=== PATIENT | female | born 1945 | race Caucasian/White ===

== ENCOUNTER 2019-08-09 19:46 | Emergency (ER) | payer OTHER ==
--- NOTE | 2019-08-09 19:51 | ERPHSYRPT ---
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 pt is on plavix and asa. Timing/Duration: today Severity: mild Associated Symptoms: denies symptoms Allergies/Adverse Reactions: No Known Drug Allergies Allergy (Verified 08/09/19 20:11) Home Medications: Aspirin EC 81 mg [Ecotrin 81 mg] 81 mg PO DAILY 02/03/13 [History] Clopidogrel Bisulfate 75 mg [PLAVIX 75 MG Tablet] 75 mg PO DAILY 02/03/13 [History] Metoprolol Succinate 50 mg [Toprol Xl 50 MG] 50 mg PO DAILY 02/03/13 [ History] Rosuvastatin Calcium [Crestor] 10 mg PO DAILY 02/03/13 [History] Hydroxyzine HCl 25 mg [Atarax 25 mg] 25 mg PO Q4H PRN PRN 08/09/19 [ History] Hx Tetanus, Diphtheria Vaccination/Date Given: Yes (unknown) Hx Influenza Vaccination/Date Given: No Hx Pneumococcal Vaccination/Date Given: No - Review of Systems Constitutional: No Symptoms Eyes: No Symptoms Ears, Nose, & Throat: No Symptoms Respiratory: No Symptoms Cardiac: No Symptoms Abdominal/Gastrointestinal: No Symptoms Genitourinary Symptoms: No Symptoms Musculoskeletal: No Symptoms Skin: Other (subq wooden splinter) Neurological: No Symptoms Psychological: No Symptoms Endocrine: No Symptoms Hematologic/Lymphatic: No Symptoms Immunological/Allergic: No Symptoms All Other Systems: Reviewed and Negative - Past Medical History Pertinent Past Medical History: Yes Neurological History: No Pertinent History ENT History: No Pertinent History Cardiac History: Coronary Artery Disease, High Cholesterol, Hypertension Respiratory History: No Pertinent History Endocrine Medical History: No Pertinent History Musculoskeletal History: No Pertinent History GI Medical History: No Pertinent History History: No Pertinent History Psycho-Social History: No Pertinent History Female Reproductive Disorders: No Pertinent History - Past Surgical History Past Surgical History: Yes Neuro Surgical History: No Pertinent History Cardiac: Cardiac Catheterization, Cardiac Stent Respiratory: No Pertinent History Gastrointestinal: No Pertinent History Genitourinary: No Pertinent History Musculoskeletal: Other - Social History Smoking Status: Never smoker Exposure to second hand smoke: No Drug Use: none Patient Lives Alone: No - Nursing Vital Signs Nursing Vital Signs: Initial Vital Signs Temperature 97.6 F 08/09/19 19:53 Pulse Rate 59 L 08/09/19 19:53 Respiratory Rate 18 08/09/19 19:53 Blood Pressure 179/83 08/09/19 19:53 O2 Sat by Pulse Oximetry 96 08/09/19 19:53 Pain Scale Pain Intensity 0 - Physical Exam General Appearance: no apparent distress, alert Eye Exam: PERRL/EOMI, eyes nml inspection Ears, Nose, Throat Exam: normal ENT inspection, moist mucous membranes Neck Exam: normal inspection, non-tender, supple, full range of motion Respiratory Exam: airway intact, No chest tenderness, No respiratory distress Gastrointestinal/Abdomen Exam: No tenderness Pelvic Exam: not done Rectal Exam: not done Back Exam: normal range of motion, No CVA tenderness, No vertebral tenderness Extremity Exam: other (volar aspect right wrist 2mm opening with palpable subq fb. tender. 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 right wrist prepped with betadine. 1% lidocaine 1.5ml for local anesthesia. #11 blade used to extend 2mm opening to 4mm. single 2cm wooden splinter removed with hemostat. no complications. pt irma well. pressure dressing applied. - Course Nursing assessment & vital signs reviewed: Yes Ordered Tests: Medication Summary Discontinued Medications Generic Name Dose Route Start Last Admin Trade Name Dara PRN Reason Stop Dose Admin Cephalexin HCl 500 mg 08/09/19 20:11 Keflex 500 Mg PO 08/09/19 20:12 STAT ONE - Progress Progress: improved Counseled pt/family regarding: diagnosis - Departure Departure Disposition: Home Clinical Impression: Foreign body (FB) in soft tissue Condition: Stable Critical Care Time: No Additional Instructions: keep current dressing in place until tomorrow evening. tomorrow evening remove dressing and wash daily with soap and water. no ointment lotions or creams. follow up with primary doctor or ED if symptoms worsen Prescriptions: Cephalexin Mh 500 mg [Keflex 500 mg] 500 mg PO TID #15 capsule
[2019-08-09 20:11] VITALS: BP 179/83; PULSE 59; O2SAT 96
[2019-08-09] MEDS ORDERED: KEFLEX 500 MG PO ONE (20:11)
[2019-08-09] MEDS ORDERED: KEFLEX 500 MG ONE (20:15)
== END 2019-08-09 20:34 | disposition home or self-care (01) ==
LOC: ED 19:46
DX: S60.851A Superficial foreign body of right wrist, initial encounter (principal); W45.8XXA Other foreign body or object entering through skin, initial encounter; Y93.9 Activity, unspecified; Y92.9 Unspecified place or not applicable
CPT/HCPCS: 20520; 99283; A9270-GY

== ENCOUNTER 2019-08-21 04:58 | Emergency (ER) | payer OTHER ==
--- NOTE | 2019-08-21 05:19 | ERPHSYRPT ---
- History of Present Illness Time Seen by Provider: 08/21/19 05:10 Source: patient, family Exam Limitations: no limitations Physician History: 74 y/o white female on as and with h/o htn, cadz and elevated cholesterol, presents with left flank pain sudden onset, localized and nonradiating. denies urinary sx. has some nausea. no vomiting. denies cp, denies soa, denies abd pain. no vaginal discharge. no acute or recent trauma. denies xs activity. Timing/Duration: today Method of Injury: unknown Quality: sharp, stabbing Back Pain Location: lumbar spine Severity of Pain-Max: moderate Severity of Pain-Current: moderate Modifying Factors: Improves With: movement Associated Symptoms: nausea, lower back pain, muscle spasms, No fever, No chills , No urinary incontinence, No vomiting, No dizziness, No numbness in legs/feet, No weakness Previous symptoms: no prior history Allergies/Adverse Reactions: No Known Drug Allergies Allergy (Verified 08/21/19 05:16) Home Medications: Aspirin EC 81 mg [Ecotrin 81 mg] 81 mg PO DAILY 02/03/13 [History] Metoprolol Succinate 50 mg [Toprol Xl 50 MG] 50 mg PO DAILY 02/03/13 [ History] Rosuvastatin Calcium [Crestor] 10 mg PO DAILY 02/03/13 [History] Hydroxyzine HCl 25 mg [Atarax 25 mg] 25 mg PO Q4H PRN PRN 08/09/19 [ History] Hx Tetanus, Diphtheria Vaccination/Date Given: Yes (unknown) Hx Influenza Vaccination/Date Given: No Hx Pneumococcal Vaccination/Date Given: No - Review of Systems Constitutional: No Symptoms Eyes: No Symptoms Ears, Nose, & Throat: No Symptoms Respiratory: No Symptoms Cardiac: No Symptoms Abdominal/Gastrointestinal: No Symptoms Genitourinary Symptoms: Flank Pain (left) Musculoskeletal: Back Pain (left lower lumbar) Skin: No Symptoms Neurological: No Symptoms Psychological: No Symptoms Endocrine: No Symptoms Hematologic/Lymphatic: No Symptoms Immunological/Allergic: No Symptoms All Other Systems: Reviewed and Negative - Past Medical History Pertinent Past Medical History: Yes Neurological History: No Pertinent History ENT History: No Pertinent History Cardiac History: Coronary Artery Disease, High Cholesterol, Hypertension Respiratory History: No Pertinent History Endocrine Medical History: No Pertinent History Musculoskeletal History: No Pertinent History GI Medical History: No Pertinent History History: No Pertinent History Psycho-Social History: No Pertinent History Female Reproductive Disorders: No Pertinent History - Past Surgical History Past Surgical History: Yes Neuro Surgical History: No Pertinent History Cardiac: Cardiac Catheterization, Cardiac Stent Respiratory: No Pertinent History Gastrointestinal: No Pertinent History Genitourinary: No Pertinent History Musculoskeletal: Other - Social History Smoking Status: Never smoker Exposure to second hand smoke: No Drug Use: none Patient Lives Alone: No - Nursing Vital Signs Nursing Vital Signs: Initial Vital Signs Temperature 97.8 F 08/21/19 05:03 Pulse Rate 65 08/21/19 05:03 Respiratory Rate 22 08/21/19 05:03 Blood Pressure 121/62 08/21/19 05:03 O2 Sat by Pulse Oximetry 98 08/21/19 05:03 Pain Scale Pain Intensity 8 - Physical Exam General Appearance: mild distress, alert, anxiety Eye Exam: PERRL/EOMI, eyes nml inspection Ears, Nose, Throat Exam: normal ENT inspection, moist mucous membranes Neck Exam: normal inspection, non-tender, supple, full range of motion Respiratory Exam: normal breath sounds, lungs clear, airway intact, No chest tenderness, No respiratory distress Cardiovascular Exam: regular rate/rhythm, normal heart sounds, normal peripheral pulses Gastrointestinal Exam: soft, normal bowel sounds, No tenderness Pelvic Exam: not done Rectal Exam: not done Back Exam: CVA tenderness (left), muscle spasm, No vertebral tenderness Extremity Exam: normal inspection, normal range of motion, No pelvis stable Neurologic Exam: alert, oriented x 3, cooperative, 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 Skin Exam: normal color, warm, dry Lymphatic Exam: No adenopathy SpO2 Interpretation: normal O2 Delivery: Room Air Ordered Tests: Active Orders 24 hr Category Date Time Status CULTURE,URINE Stat Lab 08/21/19 05:29 Received UA W/RFX UR CULTURE Stat Lab 08/21/19 05:29 Completed Lab/Rad Data: Laboratory Results 08/21/19 Range/Units 05:29 Urine Color YELLOW (YELLOW) Urine Appearance CLEAR (CLEAR) Urine pH 6.0 (5-6) Ur Specific [place] 1.015 (1.005-1.025) Urine Protein NEGATIVE (Negative) Urine Ketones NEGATIVE (NEGATIVE) Urine Blood SMALL (0-5) Adrian/ul Urine Nitrite NEGATIVE (NEGATIVE) Urine Bilirubin NEGATIVE (NEGATIVE) Urine Urobilinogen NEGATIVE (0-1) mg/dL Ur Leukocyte Esterase SMALL (NEGATIVE) Urine WBC (Auto) 11-15 (0-5) /HPF Urine RBC (Auto) 11-15 (0-2) /HPF U Hyaline Cast (Auto) 0-2 (0-2) /LPF U Epithel Cells (Auto) RARE (FEW) /HPF Urine Bacteria (Auto) NONE (NEGATIVE) /HPF Urine Mucus (Auto) SLIGHT (NEGATIVE) /HPF Urine Culture Reflexed YES (NO) Urine Glucose NEGATIVE (NEGATIVE) mg/dL - Progress Progress: improved Progress Note: 08/21/19 05:58 pt does not want a ct scan at this time. she only wants nausea medicine, antibx , pain meds. Counseled pt/family regarding: lab results, diagnosis, need for follow-up - Departure Departure Disposition: Home Clinical Impression: Flank pain, Back pain, UTI (urinary tract infection) Condition: Stable Critical Care Time: No Referrals: ROULA ESTRADA MD [Primary Care Provider] - Additional Instructions: drink plenty of fluids. take ibuprofen 600mg orally 3 times daily with food. return to ED if symptoms worsen. Prescriptions: Ondansetron ODT 4 MG [Zofran Odt 4 mg] 4 mg PO Q6H PRN PRN #10 tab.rapdis PRN Reason: Vomiting Hydrocodone/APAP 5/325 [[place] 5/325 mg] 1 each PO Q8H PRN PRN #9 tablet MDD 3 PRN Reason: Pain Ciprofloxacin [Cipro 500 MG] 500 mg PO BID #14 tablet
[2019-08-21 05:37] LABS: Appearance CLEAR (CLEAR); Bilirubin NEGATIVE (NEGATIVE); Blood SMALL Ery/ul (0-5); Epithelial Cells RARE /HPF (FEW); Glucose NEGATIVE (NEGATIVE); Hyaline Casts 0-2 /LPF (0-2); Ketones NEGATIVE (NEGATIVE); Leukocyte Esterase SMALL (NEGATIVE); Mucus SLIGHT /HPF (NEGATIVE); Nitrite NEGATIVE (NEGATIVE); Protein,Urine Dip NEGATIVE (Negative); Specific Gravity 1.015 (1.005-1.025); Urobilinogen NEGATIVE mg/dL (0-1)
[2019-08-21] MEDS ORDERED: ZOFRAN ODT 4 MG PO ONE (06:03)
[2019-08-21] MEDS ORDERED: Levofloxacin 250MG Tablet PO ONE (06:04)
[2019-08-21] MEDS ORDERED: TORAdol 30 mg Injection IM ONE (06:05)
[2019-08-21] MEDS ORDERED: Hydromorphone 1 mg/ml Ampule IM ONE (06:05)
[2019-08-21] MEDS ORDERED: NORCO 5/325 MG PO ONE (06:06)
[2019-08-21] MEDS ORDERED: ZOFRAN ODT 4 MG PO PRN (06:07)
[2019-08-21] MEDS ORDERED: TORAdol 30 mg Injection ONE (06:08)
[2019-08-21] MEDS ORDERED: Hydromorphone 1 mg/ml Ampule ONE (06:08)
[2019-08-21] MEDS ORDERED: Levofloxacin 250MG Tablet ONE (06:08)
[2019-08-21] MEDS ORDERED: ZOFRAN ODT 4 MG ONE ×2 (06:08→06:11)
[2019-08-21] MEDS ORDERED: NORCO 5/325 MG ONE (06:11)
[2019-08-21 06:38] VITALS: BP 113/77; PULSE 77; O2SAT 99
== END 2019-08-21 06:38 | disposition home or self-care (01) ==
LOC: ED 04:58
DX: R10.9 Unspecified abdominal pain (principal); M54.5 Low back pain; N39.0 Urinary tract infection, site not specified; I25.10 Atherosclerotic heart disease of native coronary artery without angina pectoris; E78.00 Pure hypercholesterolemia, unspecified; I10 Essential (primary) hypertension; F41.9 Anxiety disorder, unspecified
CPT/HCPCS: 81001; 87077; 87086; 87186; 96372; 99284; J1170; J1885; Q0162; A9270-GY

== ENCOUNTER 2020-09-04 16:04 | Observation (INO) | payer OTHER ==
[2020-09-04] MEDS ORDERED: Sodium Chloride 0.9% 1000 ML 1,000 ML IV STA (17:54)
[2020-09-04] MEDS ORDERED: Zofran 4 MG/2 ML VIAL IV ONE ×2 (17:54→19:45)
[2020-09-04] MEDS ORDERED: Sodium Chloride 0.9% 1000 ML 1,000 ML ONE (18:23)
[2020-09-04] MEDS ORDERED: Zofran 4 MG/2 ML VIAL ONE ×2 (18:23→19:49)
[2020-09-04 18:31] LABS: Hematocrit 47.6 % (35-47); Hemoglobin 15.6 gm/dl (12.0-16.0); Mean Cell Volume 86.9 fl (78-100); Mean Corpuscular Hemoglobin 28.5 pg (26-32); Mean Corpuscular Hgb Concent. 32.8 g/dl (32-36); Mean Platelet Volume 9.7 fl (7.5-11.0); Platelet Count 301 K/mm3 (150-450); Red Blood Count 5.48 M/mm3 (4.1-5.4); Red Cell Distribution Width 13.9 % (11.5-14.0); White Blood Count 9.2 K/mm3 (4.0-10.5)
[2020-09-04 19:02] LABS: ANION GAP 15.9 MEQ/L (5-15); BILIRUBIN,TOTAL 0.8 mg/dL (0.2-1.3); Calcium 9.6 mg/dL (8.4-10.2); Creatinine 1 1.49 mg/dL (0.52-1.04); EST GLOMERULAR FILTRATION RATE 36.5 ML/MIN; Potassium 3.9 mmol/L (3.5-5.1); Total Protein 7.2 g/dL (6.3-8.2)
--- NOTE | 2020-09-04 19:22 | ERPHSYRPT ---
- History of Present Illness Source: patient Exam Limitations: no limitations Patient Subjective Stated Complaint: pt to er c/o decreased appetite, left eye pain and lose of sight to eye and left back pain. 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 Triage Nursing Assessment: pt arrives p/w/d resp easy a@ox3 pt has redness noted to left eye states left back pain is better at this time though is mainly concerned with loss of appetite states she feels this is dt her pain. Timing/Duration: day(s) (3) Method of Injury: other (No known trauma) Quality: throbbing Back Pain Location: lumbar spine Severity of Pain-Max: moderate Severity of Pain-Current: moderate Modifying Factors: Improves With: nothing Associated Symptoms: nausea, vomiting Previous symptoms: no prior history Hx Tetanus, Diphtheria Vaccination/Date Given: Yes (unknown) Hx Influenza Vaccination/Date Given: No Hx Pneumococcal Vaccination/Date Given: No <TERESITA CLARKE - Last Filed: 09/04/20 19:19> <JEANNE CABRERA - Last Filed: 09/04/20 21:05> - History of Present Illness Physician History: A 75-year-old female who was 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 Since then she has developed anorexia nausea vomiting dry heaves and back pain. (TERESITA CLARKE) Allergies/Adverse Reactions: No Known Drug Allergies Allergy (Verified 09/04/20 17:13) Home Medications: Metoprolol Succinate 50 mg [Toprol Xl 50 MG] 50 mg PO DAILY 02/03/13 [History] Atorvastatin Calcium [Lipitor] 80 mg PO DAILY 08/26/20 [History] Zolpidem Tartrate 10 mg [Ambien 10 MG] 10 mg PO HS 08/26/20 [History] estradioL [Estradiol] 42.5 gm VG DAILY 08/26/20 [History] Dorzolamide HCl/Timolol Maleat [Dorzolamide-Timolol Eye Drops] 1 drop OP TID 09/04/20 [History] Pilocarpine HCl 1% Ophth [Isopto-Carpine 1% Ophthalmic] 1 drop OP QID PRN 09/04/20 [History] Tobramycin Sulf/Dexamethasone [Tobramycin-Dexameth Ophth Susp] 1 drop OP TID 09/04/20 [History] Travel Risk - International Travel Have you traveled outside of the country in past 3 weeks: No - Coronavirus Screening Are you exhibiting any of the following symptoms?: No Close contact with a COVID-19 positive Pt in past 14-21 Days: Yes <TERESITA CLARKE Last Filed: 09/04/20 19:19> - Review of Systems Constitutional: No Fever, No Chills Eyes: No Symptoms Ears, Nose, & Throat: No Symptoms Respiratory: No Cough, No Dyspnea Cardiac: No Chest Pain, No Edema, No Syncope Abdominal/Gastrointestinal: Nausea, Vomiting, No Abdominal Pain, No Diarrhea Genitourinary Symptoms: No Dysuria Musculoskeletal: Back Pain, No Neck Pain Skin: No Rash Neurological: No Dizziness, No Focal Weakness, No Sensory Changes Psychological: No Symptoms Endocrine: No Symptoms All Other Systems: Reviewed and Negative <TERESITA CLARKE Last Filed: 09/04/20 19:19> - Past Medical History Pertinent Past Medical History: Yes Neurological History: No Pertinent History ENT History: No Pertinent History Cardiac History: Coronary Artery Disease, High Cholesterol, Hypertension Respiratory History: No Pertinent History Endocrine Medical History: No Pertinent History Musculoskeletal History: No Pertinent History GI Medical History: No Pertinent History History: No Pertinent History Psycho-Social History: No Pertinent History Female Reproductive Disorders: No Pertinent History Other Medical History: cataracts left eye - Past Surgical History Past Surgical History: Yes Neuro Surgical History: No Pertinent History Cardiac: Cardiac Catheterization, Cardiac Stent Respiratory: No Pertinent History Gastrointestinal: No Pertinent History Genitourinary: No Pertinent History Musculoskeletal: Other Female Surgical History: No Pertinent History Other Surgical History: back surgery - Social History Smoking Status: Never smoker Exposure to second hand smoke: No Drug Use: none Patient Lives Alone: No - Female History Hx Now: No <TERESITA CLARKE Last Filed: 09/04/20 19:19> - Physical Exam General Appearance: mild distress SpO2: 97 <TERESITA CLARKE Last Filed: 09/04/20 19:19> - Physical Exam Eye Exam: PERRL/EOMI Ears, Nose, Throat Exam: normal ENT inspection Neck Exam: normal inspection Respiratory Exam: normal breath sounds Cardiovascular Exam: regular rate/rhythm Gastrointestinal Exam: soft, normal bowel sounds Back Exam: normal inspection Extremity Exam: normal inspection Neurologic Exam: alert, oriented x 3 Skin Exam: normal color SpO2 Interpretation: normal O2 Delivery: Room Air <JEANNE CABRERA - Last Filed: 09/04/20 21:05> - Nursing Vital Signs Nursing Vital Signs: Initial Vital Signs Temperature 97.8 F 09/04/20 16:56 Pulse Rate 93 H 09/04/20 16:56 Respiratory Rate 16 09/04/20 16:56 Blood Pressure 130/67 09/04/20 16:56 O2 Sat by Pulse Oximetry 97 09/04/20 16:56 Pain Scale Pain Intensity 6 - Course Nursing assessment & vital signs reviewed: Yes <TERESITA CLARKE - Last Filed: 09/04/20 19:19> - CT Exams Abdomen/Pelvis CT Interpretation: Discussed w/radiologist (2 mm UVJ stone) <JEANNE CABRERA - Last Filed: 09/04/20 21:05> Ordered Tests: Active Orders 24 hr Category Date Time Status ABDOMEN AND PELVIS W/0 CONTRAS [CT] Stat Exams 09/04/20 19:58 Taken OBSTR/ACUTE ABDOMEN SERIES Stat Exams 09/04/20 17:55 Completed AMYLASE Stat Lab 09/04/20 18:25 Completed CBC W DIFF Stat Lab 09/04/20 18:25 Completed CMP Stat Lab 09/04/20 18:25 Completed CULTURE,URINE Stat Lab 09/04/20 19:53 Received LIPASE Stat Lab 09/04/20 18:25 Completed Lactic Acid Stat Lab 09/04/20 18:30 Completed Manual Differential NC Stat Lab 09/04/20 18:25 Completed UA W/RFX UR CULTURE Stat Lab 09/04/20 19:53 Completed Medication Summary Generic Name Dose Route Start Last Admin Trade Name Freq PRN Reason Stop Dose Admin Ceftriaxone Sodium/Dextrose 1 g in 50 mls @ 100 mls/hr 09/04/20 20:44 09/04/20 20:56 Rocephin 1 Gm-D5w 50 Ml Bag IV 09/04/20 21:13 100 ml/hr STAT STA 100 mls/hr Administration Discontinued Medications Generic Name Dose Route Start Last Admin Trade Name Freq PRN Reason Stop Dose Admin Sodium Chloride 1,000 mls @ 999 mls/hr 09/04/20 17:54 09/04/20 19:26 Sodium Chloride 0.9% 1000 Ml IV 09/04/20 18:54 Infused .Q1H1M STA Infusion Sodium Chloride Confirm 09/04/20 18:23 Sodium Chloride 0.9% 1000 Ml Administered 09/04/20 18:24 Dose 1,000 mls @ ud .ROUTE .STK-MED ONE Ceftriaxone Sodium/Dextrose Confirm 09/04/20 20:54 Rocephin 1 Gm-D5w 50 Ml Bag Administered 09/04/20 20:55 Dose 1 g in 50 mls @ ud IV .STK-MED ONE Morphine Sulfate 4 mg 09/04/20 19:45 09/04/20 19:55 Morphine Sulfate 4 Mg Inj IV 09/04/20 19:46 4 mg STAT ONE Administration Morphine Sulfate Confirm 09/04/20 19:50 Morphine Sulfate 4 Mg Inj Administered 09/04/20 19:51 Dose 4 mg .ROUTE .STK-MED ONE Ondansetron HCl 4 mg 09/04/20 17:54 09/04/20 18:24 Zofran 4 Mg/2 Ml Vial IV 09/04/20 17:55 4 mg STAT ONE Administration Ondansetron HCl Confirm 09/04/20 18:23 Zofran 4 Mg/2 Ml Vial Administered 09/04/20 18:24 Dose 4 mg .ROUTE .STK-MED ONE Ondansetron HCl 4 mg 09/04/20 19:45 09/04/20 19:55 Zofran 4 Mg/2 Ml Vial IV 09/04/20 19:46 4 mg STAT ONE Administration Ondansetron HCl Confirm 09/04/20 19:49 Zofran 4 Mg/2 Ml Vial Administered 09/04/20 19:50 Dose 4 mg .ROUTE .STK-MED ONE Lab/Rad Data: Laboratory Result Diagrams 09/04/20 18:25 09/04/20 18:25 Laboratory Results 09/04/20 09/04/20 09/04/20 Range/Units 19:53 18:30 18:25 WBC (4.0-10.5) K/mm3 RBC (4.1-5.4) M/mm3 Hgb (12.0-16.0) gm/dl Hct (35-47) % MCV (78-100) fl MCH (26-32) pg MCHC (32-36) g/dl RDW (11.5-14.0) % Plt Count (150-450) K/mm3 MPV (7.5-11.0) fl Segmented Neutrophils (36.0-66.0) % Band Neutrophils (0.0-2.0) % Lymphocytes (Manual) (24-44) % Monocytes (Manual) (0.0-12.0) % Eosinophils (Manual) (0.00-3.0) % Atypical Lymphocytes % Platelet Estimate (NORMAL) RBC Morphology Sodium 136 L (137-145) mmol/L Potassium 3.9 (3.5-5.1) mmol/L Chloride 106 (98-107) mmol/L Carbon Dioxide 18 L (22-30) mmol/L Anion Gap 15.9 H (5-15) MEQ/L BUN 34 H (7-17) mg/dL Creatinine 1.49 H (0.52-1.04) mg/dL Estimated GFR 36.5 ML/MIN Glucose 110 H (74-106) mg/dL Lactic Acid 1.1 (0.4-2.0) Calcium 9.6 (8.4-10.2) mg/dL Total Bilirubin 0.80 (0.2-1.3) mg/dL AST 35 (14-36) U/L ALT 31 (0-35) U/L Alkaline Phosphatase 88 (38-126) U/L Serum Total Protein 7.2 (6.3-8.2) g/dL Albumin 4.0 (3.5-5.0) g/dL Amylase 97 (30-110) U/L Lipase 241 (23-300) U/L Urine Color YELLOW (YELLOW) Urine Appearance SLIGHTLY CLOUDY (CLEAR) Urine pH 5.0 (5-6) Ur Specific [place] 1.031 (1.005-1.025) Urine Protein 30 (Negative) Urine Ketones SMALL (NEGATIVE) Urine Blood NEGATIVE (0-5) Adrian/ul Urine Nitrite NEGATIVE (NEGATIVE) Urine Bilirubin NEGATIVE (NEGATIVE) Urine Urobilinogen 2 (0-1) mg/dL Ur Leukocyte Esterase SMALL (NEGATIVE) Urine WBC (Auto) 6-10 (0-5) /HPF Urine RBC (Auto) 3-5 (0-2) /HPF U Hyaline Cast (Auto) 0-2 (0-2) /LPF U Epithel Cells (Auto) FEW (FEW) /HPF Urine Bacteria (Auto) NONE SEEN (NEGATIVE) /HPF Urine Mucus (Auto) SLIGHT (NEGATIVE) /HPF Urine Culture Reflexed YES (NO) Urine Glucose NEGATIVE (NEGATIVE) mg/dL 09/04/20 Range/Units 18:25 WBC 9.2 (4.0-10.5) K/mm3 RBC 5.48 H (4.1-5.4) M/mm3 Hgb 15.6 (12.0-16.0) gm/dl Hct 47.6 H (35-47) % MCV 86.9 (78-100) fl MCH 28.5 (26-32) pg MCHC 32.8 (32-36) g/dl RDW 13.9 (11.5-14.0) % Plt Count 301 (150-450) K/mm3 MPV 9.7 (7.5-11.0) fl Segmented Neutrophils 88 H (36.0-66.0) % Band Neutrophils 1 (0.0-2.0) % Lymphocytes (Manual) 4 L (24-44) % Monocytes (Manual) 5 (0.0-12.0) % Eosinophils (Manual) 1 (0.00-3.0) % Atypical Lymphocytes 1 % Platelet Estimate NORMAL (NORMAL) RBC Morphology NORMAL Sodium (137-145) mmol/L Potassium (3.5-5.1) mmol/L Chloride (98-107) mmol/L Carbon Dioxide (22-30) mmol/L Anion Gap (5-15) MEQ/L BUN (7-17) mg/dL Creatinine (0.52-1.04) mg/dL Estimated GFR ML/MIN Glucose (74-106) mg/dL Lactic Acid (0.4-2.0) Calcium (8.4-10.2) mg/dL Total Bilirubin (0.2-1.3) mg/dL AST (14-36) U/L ALT (0-35) U/L Alkaline Phosphatase (38-126) U/L Serum Total Protein (6.3-8.2) g/dL Albumin (3.5-5.0) g/dL Amylase (30-110) U/L Lipase (23-300) U/L Urine Color (YELLOW) Urine Appearance (CLEAR) Urine pH (5-6) Ur Specific [place] (1.005-1.025) Urine Protein (Negative) Urine Ketones (NEGATIVE) Urine Blood (0-5) Adrian/ul Urine Nitrite (NEGATIVE) Urine Bilirubin (NEGATIVE) Urine Urobilinogen (0-1) mg/dL Ur Leukocyte Esterase (NEGATIVE) Urine WBC (Auto) (0-5) /HPF Urine RBC (Auto) (0-2) /HPF U Hyaline Cast (Auto) (0-2) /LPF U Epithel Cells (Auto) (FEW) /HPF Urine Bacteria (Auto) (NEGATIVE) /HPF Urine Mucus (Auto) (NEGATIVE) /HPF Urine Culture Reflexed (NO) Urine Glucose (NEGATIVE) mg/dL - Progress Progress: unchanged, pain not gone completely Counseled pt/family regarding: lab results, diagnosis, need for follow-up, rad results <JEANNE CABRERA - Last Filed: 09/04/20 21:05> <TERESITA CLARKE - Last Filed: 09/04/20 19:19> - Departure Departure Disposition: Observation Critical Care Time: Yes Critical Care Time(excluding separately billable procedures): Critical 30-74 mins <JEANNE CABRERA - Last Filed: 09/04/20 21:05> - Departure Clinical Impression: Ureteral calculus, left UTI (urinary tract infection) Qualifiers: Urinary tract infection type: acute pyelonephritis Qualified Code(s): N10 - Acute pyelonephritis Condition: Fair Referrals: ROULA ESTRADA MD [Primary Care Provider] -
[2020-09-04] MEDS ORDERED: MORPHINE SULFATE 4 MG INJ IV ONE (19:45)
[2020-09-04] MEDS ORDERED: MORPHINE SULFATE 4 MG INJ ONE (19:50)
[2020-09-04 20:01] LABS: ATYPICAL LYMPHS 1 %; BAND 1 % (0.0-2.0); Eosinophil 1 % (0.00-3.0); Lymphocytes 4 % (24-44); Monocyte 5 % (0.0-12.0); Neutrophils 88 % (36.0-66.0); Platelet Estimate NORMAL (NORMAL); Total Cells Counted 100
[2020-09-04 20:19] LABS: Appearance SLIGHTLY CLOUDY (CLEAR); Bilirubin NEGATIVE (NEGATIVE); Blood NEGATIVE Ery/ul (0-5); Epithelial Cells FEW /HPF (FEW); Glucose NEGATIVE (NEGATIVE); Hyaline Casts 0-2 /LPF (0-2); Ketones SMALL (NEGATIVE); Leukocyte Esterase SMALL (NEGATIVE); Mucus SLIGHT /HPF (NEGATIVE); Nitrite NEGATIVE (NEGATIVE); Protein,Urine Dip 30 (Negative); Specific Gravity 1.031 (1.005-1.025); Urobilinogen 2 mg/dL (0-1)
[2020-09-04 20:24] LABS: Bacteria NONE SEEN /HPF (NEGATIVE)
--- NOTE | 2020-09-04 20:43 | XRAY ---
Indication: Left abdomen/back pain and nausea one week. Comparison: Chest exam February 03, 2013. 2 view abdomen nonacute and nonobstructed with incidental splenic calcified granulomas and pelvic phleboliths. Inferior left kidney demonstrates 4 mm calculus/calcification. Remaining solid organs are unremarkable. Osseous structures intact with mild osteopenia and L4-L5 fusion surgery with posterior spinal hardware. Single AP chest again demonstrates right midlung calcified granulomas with new discoid atelectasis/scarring. Remaining heart and lungs unremarkable. Bony thorax intact. Impression: 1. Left renal micro-calculus/calcification. CT renal stone study may yield further information if clinically warranted. 2. Nonacute one view chest with chronic features. 3. Incidental chronic bony findings and old granulomatous disease.
[2020-09-04] MEDS ORDERED: ROCEPHIN 1 Gm-D5w 50 ml Bag** 1 G/50 ML IVPB IV STA (20:44)
[2020-09-04] MEDS ORDERED: ROCEPHIN 1 Gm-D5w 50 ml Bag** 1 G/50 ML IVPB IV ONE (20:54)
[2020-09-05] MEDS: Sodium Chloride 0.9% 1000 ML 1,000 ML IV SCH ×3 (04:34→20:23)
[2020-09-05] MEDS: MORPHINE SULFATE 4 MG INJ IV PRN ×3 (04:34→17:49)
--- NOTE | 2020-09-05 08:50 | XRAY ---
Indication: Left flank pain. History renal stones. Multiple contiguous axial images obtained through the abdomen and pelvis without contrast as ordered. Comparison: None Lung bases demonstrates patchy airspace disease without consolidation/effusion. Heart is not enlarged. Noncontrasted stomach and bowel loops appear nonobstructed. Scattered descending and sigmoid diverticulosis without diverticulitis. No free fluid/air. There is 2-3 mm left UVJ calculus. Proximal left ureter is slightly prominent and there is mild hydronephrosis consistent with partial obstructive uropathy. Inferior left renal calyx demonstrates 4-5 mm calculus. Incidental hepatic/splenic calcified granulomas and 2 cm right adrenal adenoma. Remaining liver, gallbladder, pancreas, spleen, adrenal glands, kidneys, ureters, bladder, and uterus appear unremarkable for noncontrast exam. Moderate scattered aortoiliac calcifications without AAA. Osseous structures intact with mild degenerative changes throughout the spine and 2-3 mm L4 anterolisthesis. L4-L5 fusion surgery with intact bilateral posterior fixation hardware. Impression: 1. 2-3 mm left UVJ calculus producing partial obstruction. Additional left renal micro-calculus. 2. Bibasilar airspace disease. 3. Incidental colonic diverticulosis, right adrenal adenoma, chronic bony findings, and old granulomatous disease.
--- NOTE | 2020-09-05 09:56 | PCM.HP ---
History of Present Illness - Chief Complaint Chief Complaint: Nephrolithiasis, UTI Date: 09/05/20 History of Present Illness: is a 75 year old female. Presented to ER with left back pain that started earlier yesterday with left lower abdominal pain, the pain stopped after it started then returned while in the ER. Pt. had CT scan showing UVJ stone of 2mm. Pt. admitted to hospital for pain control and iv hydration. - Review of Systems Constitutional: No Fever, No Chills Eyes: No Symptoms Ears, Nose, & Throat: No Symptoms Respiratory: No Cough, No Short Of Breath Cardiac: No Chest Pain, No Edema, No Syncope Abdominal/Gastrointestinal: Abdominal Pain, Nausea, No Vomiting, No Diarrhea Genitourinary Symptoms: No Dysuria Musculoskeletal: Back Pain, No Neck Pain Skin: No Rash Neurological: No Dizziness, No Focal Weakness, No Sensory Changes Psychological: No Symptoms Endocrine: No Symptoms Hematologic/Lymphatic: No Symptoms Immunological/Allergic: No Symptoms Medications & Allergies Home Medications: Home Medication List Metoprolol Succinate 50 mg [Toprol Xl 50 MG] 50 mg PO DAILY 02/03/13 [History Confirmed 09/04/20] Atorvastatin Calcium [Lipitor] 80 mg PO DAILY 08/26/20 [History Confirmed 09/04/20] Zolpidem Tartrate 10 mg [Ambien 10 MG] 10 mg PO HS 08/26/20 [History Confirmed 09/04/20] estradioL [Estradiol] 42.5 gm VG DAILY 08/26/20 [History Confirmed 09/04/20] Dorzolamide HCl/Timolol Maleat [Dorzolamide-Timolol Eye Drops] 1 drop OP TID 09/04/20 [History Confirmed 09/04/20] Pilocarpine HCl 1% Ophth [Isopto-Carpine 1% Ophthalmic] 1 drop OP QID PRN 09/04/20 [History Confirmed 09/04/20] Tobramycin Sulf/Dexamethasone [Tobramycin-Dexameth Ophth Susp] 1 drop OP TID 09/04/20 [History Confirmed 09/04/20] acetaZOLAMIDE [Acetazolamide 250 mg Tablet] 500 mg PO BID 09/05/20 [History Confirmed 09/05/20] Allergies/Adverse Reactions: Allergies Allergy/AdvReac Type Severity Reaction Status Date / Time No Known Drug Allergies Allergy Verified 09/04/20 17:13 - Past Medical History Past Medical History: Yes Neurological History: No Pertinent History ENT History: No Pertinent History Cardiac History: Coronary Artery Disease, High Cholesterol, Hypertension Respiratory History: No Pertinent History Endocrine Medical History: No Pertinent History Musculoskelatal History: No Pertinent History GI Medical History: No Pertinent History History: No Pertinent History Pyscho-Social History: No Pertinent History Reproductive Disorders: No Pertinent History Comment: cataracts left eye - Female History Are you now?: No - Past Surgical History Past Surgical History: Yes Neuro Surgical History: No Pertinent History Cardiac History: Cardiac Catheterization, Cardiac Stent Respiratory Surgery: No Pertinent History GI Surgical History: No Pertinent History Genitourinary Surgical Hx: No Pertinent History Musculskeletal Surgical Hx: Other Female Surgical History: No Pertinent History Other Surgical History: back surgery - Social History Smoking Status: Never smoker Exposure to second hand smoke: No Alcohol: None Drug Use: none - Physical Exam Vital Signs: Vital Signs - 24 hr Temp Pulse Resp BP Pulse Ox 09/05/20 08:00 96.5 F 57 L 20 98/60 97 09/05/20 04:00 97.2 F 55 L 20 131/61 96 09/05/20 00:00 99.0 F 48 L 20 114/64 96 09/04/20 22:52 97.6 F 52 L 18 136/63 96 09/04/20 20:59 55 L 16 124/62 97 09/04/20 20:03 56 L 16 132/66 97 09/04/20 19:22 97 09/04/20 19:22 50 L 18 149/70 99 09/04/20 16:56 97.8 F 93 H 16 130/67 97 General Appearance: no apparent distress, alert Neurologic Exam: alert, oriented x 3, cooperative, normal mood/affect, nml cerebellar function, sensation nml, No motor deficits Eye Exam: PERRL/EOMI, eyes nml inspection Ears, Nose, Throat Exam: normal ENT inspection, moist mucous membranes Neck Exam: normal inspection, non-tender, supple, full range of motion Respiratory Exam: normal breath sounds, lungs clear, No respiratory distress Cardiovascular Exam: regular rate/rhythm, normal heart sounds, normal peripheral pulses Gastrointestinal/Abdomen Exam: soft, normal bowel sounds, No tenderness, No mass Back Exam: normal inspection, CVA tenderness, No vertebral tenderness Extremity Exam: normal inspection, normal range of motion, pelvis stable Skin Exam: normal color, warm, dry, No rash Lymphatic Exam: No adenopathy Results - Labs Lab/Micro Results: Lab Results-Last 24 Hours 09/04/20 09/04/20 09/04/20 Range/Units 18:25 18:25 18:30 WBC 9.2 (4.0-10.5) K/mm3 RBC 5.48 H (4.1-5.4) M/mm3 Hgb 15.6 (12.0-16.0) gm/dl Hct 47.6 H (35-47) % MCV 86.9 (78-100) fl MCH 28.5 (26-32) pg MCHC 32.8 (32-36) g/dl RDW 13.9 (11.5-14.0) % Plt Count 301 (150-450) K/mm3 MPV 9.7 (7.5-11.0) fl Segmented Neutrophils 88 H (36.0-66.0) % Band Neutrophils 1 (0.0-2.0) % Lymphocytes (Manual) 4 L (24-44) % Monocytes (Manual) 5 (0.0-12.0) % Eosinophils (Manual) 1 (0.00-3.0) % Atypical Lymphocytes 1 % Platelet Estimate NORMAL (NORMAL) RBC Morphology NORMAL Sodium 136 L (137-145) mmol/L Potassium 3.9 (3.5-5.1) mmol/L Chloride 106 (98-107) mmol/L Carbon Dioxide 18 L (22-30) mmol/L Anion Gap 15.9 H (5-15) MEQ/L BUN 34 H (7-17) mg/dL Creatinine 1.49 H (0.52-1.04) mg/dL Estimated GFR 36.5 ML/MIN Glucose 110 H (74-106) mg/dL Lactic Acid 1.1 (0.4-2.0) Calcium 9.6 (8.4-10.2) mg/dL Total Bilirubin 0.80 (0.2-1.3) mg/dL AST 35 (14-36) U/L ALT 31 (0-35) U/L Alkaline Phosphatase 88 (38-126) U/L Serum Total Protein 7.2 (6.3-8.2) g/dL Albumin 4.0 (3.5-5.0) g/dL Amylase 97 (30-110) U/L Lipase 241 (23-300) U/L Urine Color (YELLOW) Urine Appearance (CLEAR) Urine pH (5-6) Ur Specific [place] (1.005-1.025) Urine Protein (Negative) Urine Ketones (NEGATIVE) Urine Blood (0-5) Adrian/ul Urine Nitrite (NEGATIVE) Urine Bilirubin (NEGATIVE) Urine Urobilinogen (0-1) mg/dL Ur Leukocyte Esterase (NEGATIVE) Urine WBC (Auto) (0-5) /HPF Urine RBC (Auto) (0-2) /HPF U Hyaline Cast (Auto) (0-2) /LPF U Epithel Cells (Auto) (FEW) /HPF Urine Bacteria (Auto) (NEGATIVE) /HPF Urine Mucus (Auto) (NEGATIVE) /HPF Urine Culture Reflexed (NO) Urine Glucose (NEGATIVE) mg/dL 09/04/20 Range/Units 19:53 WBC (4.0-10.5) K/mm3 RBC (4.1-5.4) M/mm3 Hgb (12.0-16.0) gm/dl Hct (35-47) % MCV (78-100) fl MCH (26-32) pg MCHC (32-36) g/dl RDW (11.5-14.0) % Plt Count (150-450) K/mm3 MPV (7.5-11.0) fl Segmented Neutrophils (36.0-66.0) % Band Neutrophils (0.0-2.0) % Lymphocytes (Manual) (24-44) % Monocytes (Manual) (0.0-12.0) % Eosinophils (Manual) (0.00-3.0) % Atypical Lymphocytes % Platelet Estimate (NORMAL) RBC Morphology Sodium (137-145) mmol/L Potassium (3.5-5.1) mmol/L Chloride (98-107) mmol/L Carbon Dioxide (22-30) mmol/L Anion Gap (5-15) MEQ/L BUN (7-17) mg/dL Creatinine (0.52-1.04) mg/dL Estimated GFR ML/MIN Glucose (74-106) mg/dL Lactic Acid (0.4-2.0) Calcium (8.4-10.2) mg/dL Total Bilirubin (0.2-1.3) mg/dL AST (14-36) U/L ALT (0-35) U/L Alkaline Phosphatase (38-126) U/L Serum Total Protein (6.3-8.2) g/dL Albumin (3.5-5.0) g/dL Amylase (30-110) U/L Lipase (23-300) U/L Urine Color YELLOW (YELLOW) Urine Appearance SLIGHTLY CLOUDY (CLEAR) Urine pH 5.0 (5-6) Ur Specific [place] 1.031 (1.005-1.025) Urine Protein 30 (Negative) Urine Ketones SMALL (NEGATIVE) Urine Blood NEGATIVE (0-5) Adrian/ul Urine Nitrite NEGATIVE (NEGATIVE) Urine Bilirubin NEGATIVE (NEGATIVE) Urine Urobilinogen 2 (0-1) mg/dL Ur Leukocyte Esterase SMALL (NEGATIVE) Urine WBC (Auto) 6-10 (0-5) /HPF Urine RBC (Auto) 3-5 (0-2) /HPF U Hyaline Cast (Auto) 0-2 (0-2) /LPF U Epithel Cells (Auto) FEW (FEW) /HPF Urine Bacteria (Auto) NONE SEEN (NEGATIVE) /HPF Urine Mucus (Auto) SLIGHT (NEGATIVE) /HPF Urine Culture Reflexed YES (NO) Urine Glucose NEGATIVE (NEGATIVE) mg/dL - Radiology Impressions Radiology Exams & Impressions: Radiology Procedures Category Date Time Status ABDOMEN AND PELVIS W/0 CONTRAS [CT] Stat Exams 09/04/20 19:58 Completed OBSTR/ACUTE ABDOMEN SERIES Stat Exams 09/04/20 17:55 Completed Assessment/Plan (1) UTI (urinary tract infection) Current Visit: Yes Status: Acute Qualifiers: Urinary tract infection type: acute pyelonephritis Qualified Code(s): N10 - Acute pyelonephritis Assessment & Plan: initiate iv Rocephin Code(s): N39.0 - URINARY TRACT INFECTION, SITE NOT SPECIFIED (2) Ureteral calculus, left Current Visit: Yes Status: Acute Assessment & Plan: initiate po flomax, strain all urine, pain control, increase ivf to 150/hr. Code(s): N20.1 - CALCULUS OF URETER
[2020-09-05] MEDS ORDERED: FLUZONE HIGH-DOSE QUAD 2020-21 IM ONE (10:00)
[2020-09-05] MEDS ORDERED: PILOCARPINE 1% OP PRN (10:52)
[2020-09-05] MEDS: Flomax 0.4 MG PO SCH (11:03)
[2020-09-05] MEDS ORDERED: ACETAZOLAMIDE 250 MG TABLET PO SCH (11:30)
[2020-09-05] MEDS: LIPITOR 40MG PO SCH (12:30)
[2020-09-05] MEDS: PATIENT OWN MEDICATION OP SCH ×9 (12:31→22:51)
[2020-09-05] MEDS: Toprol Xl 50 MG PO SCH (12:37)
[2020-09-05] MEDS ORDERED: COSOPT OPHTHALMIC 10 ML OP SCH (15:00)
[2020-09-05] MEDS ORDERED: ROCEPHIN 1 Gm-D5w 50 ml Bag** 1 G/50 ML IVPB IV SCH (22:00)
[2020-09-05] MEDS ORDERED: ACETAZOLAMIDE 500 MG PO SCH (22:00)
[2020-09-05] MEDS ORDERED: Ambien 10 MG PO SCH (22:00)
[2020-09-05] MEDS: PATIENT OWN MEDICATION PO SCH (22:51)
[2020-09-06] MEDS: Sodium Chloride 0.9% 1000 ML 1,000 ML IV SCH (03:55)
[2020-09-06 05:31] VITALS: O2SAT 95
[2020-09-06 08:45] VITALS: BP 133/63; PULSE 72
[2020-09-06] MEDS: PATIENT OWN MEDICATION PO SCH (09:46)
[2020-09-06] MEDS: PATIENT OWN MEDICATION OP SCH ×3 (09:48)
[2020-09-06] MEDS: Flomax 0.4 MG PO SCH (09:49)
[2020-09-06] MEDS: Toprol Xl 50 MG PO SCH (09:50)
[2020-09-06] MEDS: LIPITOR 40MG PO SCH (09:50)
[2020-09-06] MEDS ORDERED: ESTRADIOL 42.5 GM VG SCH (10:00)
[2020-09-06] MEDS ORDERED: NON-FORMULARY ITEM (Atorvastatin Calcium [Lipitor] 80 MG) PO SCH (10:00)
--- NOTE | 2020-09-06 11:58 | PCM.DS ---
Discharge Summary Date of Admission: 09/04/20 21:43 Date of Discharge: 09/06/20 Admitting Physician: ROULA ESTRADA Primary Care Provider: ROULA ESTRADA Allergies Allergies No Known Drug Allergies Allergy (Verified 09/04/20 17:13) Hospital Summary - Hospital Course Hospital Course: Pt. admitted for iv hydration and pain control, pt. has had no further need for pain medication over the past 24 hours despite not seeing a definite stone in the strainer, pt. feels ready for discharge and we will discharge her today with CT renal stone protocol for Monday or Monday with follow-up with her pcp this week. - Vitals & Intake/Output Vital Signs: Vital Signs Temperature 97.8 F 09/06/20 08:00 Pulse Rate 72 09/06/20 08:00 Respiratory Rate 18 09/06/20 08:00 Blood Pressure 133/63 09/06/20 08:00 O2 Sat by Pulse Oximetry 95 09/06/20 08:00 Intake & Output: Intake & Output 09/03/20 09/04/20 09/05/20 09/06/20 11:59 11:59 11:59 11:59 Intake Total 350 4156 Output Total 100 350 Balance 250 3806 Weight 69.7 kg - Lab Result Diagrams: 09/04/20 18:25 09/04/20 18:25 Micro Results-Entire Visit: Microbiology 09/04/20 19:53 Urine Culture - Final Urine, Void <10K NORMAL SKIN SHERMAN PROBABLE SKIN CONTAMINANT - Radiology Exams Ordered Rad Exams-Entire Visit: Radiology Procedures Category Date Time Status ABDOMEN AND PELVIS W/0 CONTRAS [CT] Stat Exams 09/04/20 19:58 Completed OBSTR/ACUTE ABDOMEN SERIES Stat Exams 09/04/20 17:55 Completed Discharge Exam General Appearance: no apparent distress, alert Neurologic Exam: alert, oriented x 3, cooperative, normal mood/affect, nml cerebellar function, sensation nml, No motor deficits Eye Exam: PERRL, EOMI, eyes nml inspection Ears, Nose, Throat Exam: normal ENT inspection, pharynx normal, moist mucous membranes Neck Exam: normal inspection, non-tender, supple, full range of motion Respiratory Exam: normal breath sounds, lungs clear, No respiratory distress Cardiovascular Exam: regular rate/rhythm, normal heart sounds Gastrointestinal/Abdomen Exam: soft, No tenderness, No mass Pelvic Exam: deferred Rectal Exam: deferred Back Exam: normal inspection, normal range of motion, No CVA tenderness, No vertebral tenderness Extremity Exam: normal inspection, normal range of motion Skin Exam: normal color, warm, dry Final Diagnosis/Problem List - Final Discharge Diagnosis/Problem (1) UTI (urinary tract infection) Current Visit: Yes Status: Acute Assessment & Plan: will not continue abx, less than 10,000 CFU Code(s): N39.0 - URINARY TRACT INFECTION, SITE NOT SPECIFIED (2) Ureteral calculus, left Current Visit: Yes Status: Acute Assessment & Plan: No persistent pain, will discharge and recheck CT to be certain the pts. stone has definitely passed, but no symptoms clinically Code(s): N20.1 - CALCULUS OF URETER - Discharge Disposition: Home, Self-Care Condition: Fair Prescriptions: No Action Metoprolol Succinate 50 mg [Toprol Xl 50 MG] 50 mg PO DAILY Zolpidem Tartrate 10 mg [Ambien 10 MG] 10 mg PO HS estradioL [Estradiol] 42.5 gm VG DAILY Atorvastatin Calcium [Lipitor] 80 mg PO DAILY Pilocarpine HCl 1% Ophth [Isopto-Carpine 1% Ophthalmic] 1 drop OP QID PRN PRN Reason: Pain Tobramycin Sulf/Dexamethasone [Tobramycin-Dexameth Ophth Susp] 1 drop OP TID Dorzolamide HCl/Timolol Maleat [Dorzolamide-Timolol Eye Drops] 1 drop OP TID acetaZOLAMIDE [Acetazolamide 250 mg Tablet] 500 mg PO BID Outpatient Orders: ABDOMEN AND PELVIS W/0 CONTRAS [CT] Time Frame: 09/08/20, Facility: [facility], Location: RADIOLOGY Instructions: Kidney Stones in Adults, Kidney Stones (DC) Additional Instructions: No food or drink after midnight on Monday.
== END 2020-09-06 12:05 | disposition home or self-care (01) ==
LOC: ED 16:04 → MED SURG 21:43
PROVIDERS: ADMIT Family Medicine; ATTEND Family Medicine
DX: N39.0 Urinary tract infection, site not specified (principal); N20.1 Calculus of ureter; Z79.899 Other long term (current) drug therapy; I10 Essential (primary) hypertension; E78.00 Pure hypercholesterolemia, unspecified; I25.10 Atherosclerotic heart disease of native coronary artery without angina pectoris; Z23 Encounter for immunization
CPT/HCPCS: 36000; 36415; 74022; 74176; 80053; 81001; 82150; 83605; 83690; 85025; 87086; 96360; 96374; 96375; 96376; 99285; 99291; G0008; G0378; U0003; 90662; J0696; J2270; J2405; A9270-GY

== ENCOUNTER 2020-12-12 16:41 | Emergency (ER) | payer OTHER ==
--- NOTE | 2020-12-12 16:45 | ERPHSYRPT ---
- History of Present Illness Time Seen by Provider: 12/12/20 16:44 Source: patient, family Exam Limitations: no limitations Physician History: This is a 75-year-old white female who complains of some chest pain today. In the last couple days the patient has had intermittent chest pain that is substernal without radiation and described as an ache and pressure. Lab work done here at this hospital. Troponin level was within normal limits this morning at 10 AM. The most significant abnormality was a D-dimer level of 1397. Because of the patient's complaint and the elevated D-dimer level, the patient was called by a doctor covering for her primary care physician. Patient also has some complaints of lower extremity swelling. Patient was told to come to emergency department for further evaluation. Timing/Duration: today Severity: mild Associated Symptoms: denies symptoms Allergies/Adverse Reactions: No Known Drug Allergies Allergy (Verified 12/12/20 16:46) Hx Tetanus, Diphtheria Vaccination/Date Given: Yes (unknown) Hx Influenza Vaccination/Date Given: No Hx Pneumococcal Vaccination/Date Given: No Travel Risk - International Travel Have you traveled outside of the country in past 3 weeks: No - Coronavirus Screening Are you exhibiting any of the following symptoms?: No Close contact with a COVID-19 positive Pt in past 14-21 Days: No - Vaccine Status Have you recieved a Covid-19 vaccination: No - Review of Systems Constitutional: No Symptoms Eyes: No Symptoms Ears, Nose, & Throat: No Symptoms Respiratory: No Symptoms Cardiac: Chest Pain Abdominal/Gastrointestinal: No Symptoms Genitourinary Symptoms: No Symptoms Musculoskeletal: Other (Bilateral lower extremities) Skin: No Symptoms Neurological: No Symptoms Psychological: No Symptoms Endocrine: No Symptoms Hematologic/Lymphatic: No Symptoms Immunological/Allergic: No Symptoms All Other Systems: Reviewed and Negative - Past Medical History Pertinent Past Medical History: Yes Neurological History: No Pertinent History ENT History: No Pertinent History Cardiac History: Coronary Artery Disease, High Cholesterol, Hypertension Respiratory History: No Pertinent History Endocrine Medical History: No Pertinent History Musculoskeletal History: No Pertinent History GI Medical History: No Pertinent History History: No Pertinent History Psycho-Social History: No Pertinent History Female Reproductive Disorders: No Pertinent History Other Medical History: cataracts left eye - Past Surgical History Past Surgical History: Yes Neuro Surgical History: No Pertinent History Cardiac: Cardiac Catheterization, Cardiac Stent Respiratory: No Pertinent History Gastrointestinal: No Pertinent History Genitourinary: No Pertinent History Musculoskeletal: Other Female Surgical History: No Pertinent History Other Surgical History: back surgery - Social History Smoking Status: Never smoker Exposure to second hand smoke: No Drug Use: none Patient Lives Alone: No - Nursing Vital Signs Nursing Vital Signs: Initial Vital Signs Temperature 98.5 F 12/12/20 16:47 Pulse Rate 74 12/12/20 16:47 Respiratory Rate 18 12/12/20 16:47 Blood Pressure 164/93 12/12/20 16:47 O2 Sat by Pulse Oximetry 97 12/12/20 16:47 Pain Scale Pain Intensity 5 - Physical Exam General Appearance: no apparent distress, alert, anxiety Eye Exam: PERRL/EOMI, eyes nml inspection Ears, Nose, Throat Exam: normal ENT inspection, moist mucous membranes Neck Exam: normal inspection, non-tender, supple, full range of motion Respiratory Exam: normal breath sounds, lungs clear, airway intact, No chest tenderness, No respiratory distress Cardiovascular Exam: regular rate/rhythm, normal heart sounds, normal peripheral pulses Gastrointestinal/Abdomen Exam: soft, normal bowel sounds, No tenderness Pelvic Exam: not done Rectal Exam: not done Back Exam: normal inspection, normal range of motion, CVA tenderness Extremity Exam: normal inspection, normal range of motion, pelvis stable Neurologic Exam: alert, oriented x 3, cooperative, speedometer inspector II-XII nml as tested, normal mood/affect, nml cerebellar function, nml station & gait, sensation nml Skin Exam: normal color, warm, dry Lymphatic Exam: No adenopathy SpO2 Interpretation: normal O2 Delivery: Room Air - Course Nursing assessment & vital signs reviewed: Yes EKG Interpreted by Me: RATE (78), Sinus Rhythm, NORMAL AXIS, NORMAL INTERVALS, NORMAL QRS, NORMAL ST-T, Other (Comparison EKG was performed on 02/03/2013. The nonspecific T wave abnormalities were present on that EKG have now resolved.) Ordered Tests: Active Orders 24 hr Category Date Time Status EKG-ER Only STAT Care 12/12/20 16:47 Active IV Insertion STAT Care 12/12/20 16:47 Active Pulse Oximetry (ED) STAT Care 12/12/20 16:47 Active CHEST WITH CONTRAST [CT] Stat Exams 12/12/20 16:48 Taken VENOUS BILATERAL EXTREMITY [US] Stat Exams 12/12/20 18:42 Taken TROPONIN Q3H Lab 12/12/20 17:17 Completed TROPONIN Q3H Lab 12/12/20 20:00 Ordered TROPONIN Q3H Lab 12/12/20 23:00 Ordered TROPONIN Q3H Lab 12/13/20 02:00 Ordered TROPONIN Q3H Lab 12/13/20 05:00 Ordered Medication Summary Discontinued Medications Generic Name Dose Route Start Last Admin Trade Name Dara PRN Reason Stop Dose Admin Sodium Chloride 500 mls @ 500 mls/hr 12/12/20 16:49 12/12/20 18:07 Sodium Chloride 0.9% 500 Ml IV 12/12/20 17:48 Infused .Q1H ONE Infusion Sodium Chloride Confirm 12/12/20 17:04 Sodium Chloride 0.9% 500 Ml Administered 12/12/20 17:05 Dose 500 mls @ ud IV .STK-MED ONE Lab/Rad Data: Laboratory Results 12/12/20 Range/Units 17:17 Troponin I < 0.012 (0.000-0.034) ng/mL - Progress Progress: improved, re-examined Progress Note: 12/12/20 18:59 Medical decision making: This patient was sent to our emergency department because of an elevated D-dimer level. The ultrasound of her bilateral lower extremities show no evidence of any deep venous thromboses. The CAT scan of her chest does not show any acute cardio pulmonary process. There are no pulmonary emboli present. There are some nodular opacities in the right upper lobe adjacent to the minor fissure most consistent with infectious process versus sequelae from previous infectious process. We will discharge her to home with a prescription for Levaquin. 12/12/20 19:00 12/12/20 19:03 Counseled pt/family regarding: lab results, diagnosis, need for follow-up, rad results - Departure Departure Disposition: Home Clinical Impression: Elevated d-dimer, Chest pain, Bilateral swelling of feet Condition: Stable Critical Care Time: No Referrals: ROULA ESTRADA MD [Primary Care Provider] - Additional Instructions: Take your medications as prescribed. Follow-up with your primary care physician on 12/14/2020 for further evaluation and management. Prescriptions: Levofloxacin [Levaquin 500 MG Tablet] 500 mg PO DAILY #7 tablet
[2020-12-12 16:57] VITALS: O2SAT 96
[2020-12-12] MEDS ORDERED: Sodium Chloride 0.9% 500 ML 500 ML IV ONE (17:04)
[2020-12-12] MEDS: Sodium Chloride 0.9% 500 ML 500 ML IV ONE (17:05)
[2020-12-12 18:04] VITALS: BP 125/104; PULSE 71
[2020-12-12] MEDS ORDERED: Levofloxacin 500 MG Tablet ONE (19:40)
[2020-12-12] MEDS: Levofloxacin 500 MG Tablet PO ONE (19:51)
--- NOTE | 2020-12-12 19:53 | XRAY ---
Indication: Bilateral leg swelling. Elevated d-dimer. Two-dimensional sonogram and color Doppler imaging of the major venous vessels of the left and right leg was performed. Comparison: None No thrombus seen in the examined deep venous vessels of the left and right leg including greater saphenous vein. Veins demonstrate normal compressibility. Venous waveforms are normal with and without augmentation. Impression: Left and right legs negative for DVT. Comment: Preliminary report was given.
--- NOTE | 2020-12-12 19:57 | XRAY ---
Indication: Chest pain. Elevated d-dimer. Bilateral leg swelling. Multiple contiguous axial images obtained through the chest using 100 cc Isovue-370 contrast and PE protocol. Comparison: February 03, 2013. There is good opacification of the pulmonary arteries to include the lobar and segmental branches. Nonoccluding pulmonary embolus seen in the right upper lobe branch extending into the posterior segmental branch. Heart is not enlarged. Aorta is normal in course and caliber. Small right paratracheal/subcarinal calcified nodes. No pathologic mediastinal/hilar lymphadenopathy. Lungs demonstrates minimal bilateral dependent atelectasis, inferior right upper lobe calcified granulomas, and minimal right upper lobe fibrosis/scarring. No infiltrate or effusion. Bony thorax intact with mild degenerative changes throughout the spine. Limited upper abdomen demonstrates fatty liver, 1 cm inferior right lobe hepatic cyst versus hemangioma, hepatic/splenic calcified granulomas, CT proven right adrenal adenoma, and 4 mm nonobstructing left renal calculus. Impression: 1. New nonobstructing right upper lobe pulmonary embolus. 2. Again old granulomatous disease. 3. Incidental fatty liver, hepatic cyst/hemangioma, right adrenal adenoma, and left renal micro-calculus. Comment: Preliminary interpretation was made by [facility] who does not report pulmonary embolus. Telephone report given to Dr. Brush in the ER at 1946 hrs. on December 12, 2020.
[2020-12-12] MEDS ORDERED: ENOXAPARIN SODIUM SQ ONE (19:59)
[2020-12-12] MEDS: ENOXAPARIN SODIUM SQ ONE (19:59)
== END 2020-12-12 20:15 | disposition home or self-care (01) ==
LOC: ED 16:41
DX: R79.89 Other specified abnormal findings of blood chemistry (principal); R07.9 Chest pain, unspecified; M79.89 Other specified soft tissue disorders; I26.99 Other pulmonary embolism without acute cor pulmonale
CPT/HCPCS: 36000; 36415; 71260; 84484; 93005; 93970; 94760; 96360; 96372; 99284; J1650; A9270-GY

== ENCOUNTER 2021-12-15 06:07 | Day surgery (SDC) | payer OTHER ==
[2021-12-15] MEDS ORDERED: Lactated Ringers 1,000 ML IV SCH (06:30)
[2021-12-15] MEDS ORDERED: Xylocaine-Mpf 2% 5 Ml Vial ONE (06:56)
[2021-12-15] MEDS ORDERED: DIPRIVAN 200 MG/20 ML IV ONE (06:56)
[2021-12-15 08:25] VITALS: O2SAT 98
[2021-12-15 08:29] VITALS: BP 147/88; PULSE 66
--- NOTE | 2021-12-15 09:33 | OP ---
SURGERY DATE/TIME: 12/15/2021 0739 PREOPERATIVE DIAGNOSIS: Screening colonoscopy. POSTOPERATIVE DIAGNOSIS: Diverticulosis. PROCEDURE: Screening colonoscopy. SURGEON: Scar Ramirez M.D. ANESTHESIA: MAC by Kurt Bui CRNA. ESTIMATED BLOOD LOSS: None. SPECIMENS: None. DESCRIPTION OF PROCEDURE: After informed written consent was obtained, the patient was taken to the endoscopy suite. She was placed in left lateral decubitus position and anesthesia was titrated to desired level of consciousness. Digital rectal exam showed normal sphincter tone and no internal lesions. The scope was inserted into the rectum and sequentially the entire colonic mucosa was traversed. The level of cecum was reached and verified with direct visualization of the ileocecal valve. Upon withdrawal careful mucosal inspection revealed no gross abnormalities other than scattered diverticula mostly in the sigmoid colon area. There were no polyps or other mucosal abnormalities. Prep was noted to be good. Retroflexion was attempted but unable to be completed due to manual constraints. The scope was removed. The patient was transferred to the recovery room in good condition.
== END 2021-12-15 08:35 | disposition home or self-care (01) ==
LOC: SDC 06:07
PROVIDERS: ATTEND Family Medicine
DX: Z12.11 Encounter for screening for malignant neoplasm of colon (principal); K57.30 Diverticulosis of large intestine without perforation or abscess without bleeding
CPT/HCPCS: 99100; J2704

== ENCOUNTER 2023-06-30 15:15 | Emergency (ER) | payer SELFPAY ==
--- NOTE | 2023-06-30 15:16 | ERPHSYRPT ---
- History of Present Illness Time Seen by Provider: 06/30/23 15:16 Source: patient, family Exam Limitations: no limitations Physician History: This is a 77-year-old white female patient who was at work and went through a door that was a swinging door and it swung back and hit the back of her heel causing a significant laceration. Patient is on Plavix. Patient has a history of coronary artery disease and CABG procedure in the past. She has a history of hyperlipidemia and hypertension. Patient does not recall when her last tetanus injection was. She has no known drug allergies. Method of Injury: direct blow (From a swinging door that swung back into her right heel posteriorly) Occurred: just prior to arrival Quality: constant Severity of Pain-Max: moderate Severity of Pain-Current: moderate Lower Extremities Pain: heel: right (upside down "V" pattern) Modifying Factors: Improves With: movement Associated Symptoms: none Allergies/Adverse Reactions: No Known Drug Allergies Allergy (Verified 12/15/21 06:16) Home Medications: Aspirin EC 81 mg [Ecotrin 81 mg] 81 mg PO DAILY 12/13/21 [History] Metoprolol Succinate 25 mg Xl* [Toprol-Xl 25MG Tablets] 25 mg PO DAILY 12/13/21 [History] Nitroglycerin 0.4 mg Tablet [Nitrostat 0.4 MG Tablet] 0.4 mg SL Q5MIN PRN MR X 3 PRN 12/13/21 [History] Rosuvastatin Calcium 10 mg PO DAILY 12/13/21 [History] Clopidogrel Bisulfate [Clopidogrel] 75 mg PO DAILY 06/30/23 [History] Hx Tetanus, Diphtheria Vaccination/Date Given: Yes (unknown) Hx Influenza Vaccination/Date Given: No Hx Pneumococcal Vaccination/Date Given: No Travel Risk - International Travel Have you traveled outside of the country in past 3 weeks: No - Coronavirus Screening Are you exhibiting any of the following symptoms?: No Close contact with a COVID-19 positive Pt in past 14-21 Days: No - Vaccine Status Have you recieved a Covid-19 vaccination: No Employment Educational [employer]: [employer] - Vaccination Dates Date of 2cond Vaccination (if applicable): 10/30/2020 - Review of Systems Constitutional: No Symptoms Eyes: No Symptoms Ears, Nose, & Throat: No Symptoms Respiratory: No Symptoms Cardiac: No Symptoms Abdominal/Gastrointestinal: No Symptoms Genitourinary Symptoms: No Symptoms Musculoskeletal: No Symptoms Skin: Other (Laceration right heel) Neurological: No Symptoms Psychological: No Symptoms Endocrine: No Symptoms Hematologic/Lymphatic: No Symptoms Immunological/Allergic: No Symptoms All Other Systems: Reviewed and Negative - Past Medical History Pertinent Past Medical History: Yes Neurological History: No Pertinent History ENT History: No Pertinent History Cardiac History: Coronary Artery Disease, High Cholesterol, Hypertension, Other Respiratory History: Pulmonary Embolism Endocrine Medical History: No Pertinent History Musculoskeletal History: No Pertinent History GI Medical History: No Pertinent History History: No Pertinent History Psycho-Social History: No Pertinent History Female Reproductive Disorders: No Pertinent History Other Medical History: stint placed by Dr. Zurita 2 or 3 years ago at [facility]. Had PE after covid . - Past Surgical History Past Surgical History: Yes Neuro Surgical History: No Pertinent History Cardiac: Cardiac Catheterization, Cardiac Stent Respiratory: No Pertinent History Gastrointestinal: No Pertinent History Genitourinary: No Pertinent History Musculoskeletal: Orthopedic Surgery Female Surgical History: No Pertinent History Other Surgical History: Back surgery unsure of year - Social History Smoking Status: Never smoker Exposure to second hand smoke: No Drug Use: none Patient Lives Alone: No - Nursing Vital Signs Nursing Vital Signs: Initial Vital Signs Temperature 97.7 F 06/30/23 15:21 Pulse Rate 62 06/30/23 15:21 Respiratory Rate 20 06/30/23 15:21 Blood Pressure 151/115 06/30/23 15:21 O2 Sat by Pulse Oximetry 99 06/30/23 15:21 Pain Scale Pain Intensity 0 - Physical Exam General Appearance: no apparent distress, alert Eyes, Ears, Nose, Throat Exam: normal ENT inspection, moist mucous membranes Neck Exam: normal inspection, non-tender, supple, full range of motion Cardiovascular/Respiratory Exam: chest non-tender, no respiratory distress Gastrointestinal/Abdominal Exam: non-tender Back Exam: normal inspection, normal range of motion, No CVA tenderness, No vertebral tenderness Hips Exam: bilateral: non-tender, normal inspection, normal range of motion, no evidence of injury Legs Exam: bilateral leg: non-tender, normal inspection, normal range of motion, no evidence of injury Knees Exam: bilateral knee: non-tender, normal inspection, normal range of motion, no evidence of injury Ankle Exam: bilateral ankle: non-tender, normal inspection, normal range of motion, no evidence of injury Foot Exam: right foot: abrasions/lacerations (Upside down "V" type laceration.), soft tissue tenderness (In the area of the laceration), other (Laceration of the skin at the level of the heel where the Achilles tendon inserts onto it. The Achilles tendon is intact. This was tested by palpation and flexion and ex tension of the right foot), left foot: non-tender, normal inspection, normal range of motion, no evidence of injury Neuro/Tendon Exam: normal sensation, normal motor functions, normal tendon functions, responds to pain, no evidence tendon injury Mental Status Exam: alert, oriented x 3, cooperative Skin Exam: normal color, warm, dry, laceration (See above extremity exam section) SpO2 Interpretation: normal O2 Delivery: Room Air Procedures - Laceration/Wound Repair Right Heel Time of Procedure: 16:05 Wound Location: Right, foot (He will) Wound Length (cm): 5 Wound's Depth, Shape: superficial, flap (Upside down V laceration shape) Irrigated: Yes Hibiclens Prep: Yes Anesthesia: 1% Lidocaine Volume Anesthetic (ccs): 7 Wound Repaired With: sutures Suture Size/Type: nylon (20) Number of Sutures: 7 - Course Nursing assessment & vital signs reviewed: Yes Ordered Tests: Medication Summary Discontinued Medications Generic Name Dose Route Start Last Admin Trade Name Dara PRN Reason Stop Dose Admin Lidocaine HCl Confirm 06/30/23 15:32 Lidocaine Hcl 1% 20 Ml Mdv 20 Ml Ml Administered 06/30/23 15:33 Dose 1 ml .ROUTE .[employer] ONE - Progress Progress Note: 06/30/23 16:30 This patient's medical issue is 1 of low to moderate complexity. Level complex in the work-up performed is based on review of the patient's past medical history, review of the patient's medication list, review the patient's drug allergy list, history of present illness and physical findings on examination. This patient's work-up in includes repair of the laceration of her right heel. No laboratory or radiographic studies necessary. Counseled pt/family regarding: diagnosis, need for follow-up Medical Desision Making - Independent Historian Additional History obtained from: Spouse - Diagnostic Testing Diagnostic test were ordered, analyzed, and reviewed by me: No - Risk of complications The pt has a mod risk of morbidity or mortality based on: Need for prescription drug management - Departure Departure Disposition: Home Clinical Impression: Laceration of heel Condition: Stable Critical Care Time: No Referrals: JOSIE COCHRAN DO [NON-STAFF PHY W/O PRIVILEGES] - Follow up/PCP as directed Additional Instructions: Keep current bandage in place until the evening of 07/01/2023. At that time you may remove the dressing and wash the site with soap and water daily thereafter. Dry the site by blot drying or using a hairspring assembler. Thin layer of antibiotic ointment of choice and cover with a nonstick gauze each day after washing. Change the dressing at least once a day. Suture removal in approximately 10 days. Take your medications as prescribed. Hold your Plavix and restart on 07/02/2023. Prescriptions: Hydrocodone/APAP 5/325 [[place] 5/325 mg] 1 each PO Q8H PRN PRN #6 tablet MDD 3 PRN Reason: Pain
[2023-06-30 15:25] VITALS: RESP 20; TEMP 97.7
[2023-06-30] MEDS ORDERED: XYLOCAINE 1% HCL 20 ML MDV ONE (15:32)
[2023-06-30 16:20] VITALS: BP 146/58; PULSE 57; O2SAT 96
[2023-06-30] MEDS ORDERED: BACIGUENT PACKET ONE (16:29)
== END 2023-06-30 17:02 | disposition home or self-care (01) ==
LOC: ED 15:15
DX: S91.311A Laceration without foreign body, right foot, initial encounter (principal); W20.8XXA Other cause of strike by thrown, projected or falling object, initial encounter; Y99.0 Civilian activity done for income or pay; E78.5 Hyperlipidemia, unspecified; I10 Essential (primary) hypertension; Z79.02 Long term (current) use of antithrombotics/antiplatelets; Z79.891 Long term (current) use of opiate analgesic; Z79.899 Other long term (current) drug therapy
CPT/HCPCS: 12002; 99282; A9270-GY

== ENCOUNTER 2023-08-11 05:51 | Day surgery (SDC) | payer OTHER ==
[2023-08-11 06:29] VITALS: RESP 18
[2023-08-11] MEDS ORDERED: Lactated Ringers 1,000 ML IV SCH (06:30)
[2023-08-11] MEDS ORDERED: CEFAZOLIN 2 GM-D5W BAG** 2 GM/50 ML ML IV SCH (06:30)
[2023-08-11] MEDS ORDERED: Decadron 4 MG INJ ONE (07:07)
[2023-08-11] MEDS ORDERED: DIPRIVAN 200 MG/20 ML IV ONE (07:07)
[2023-08-11] MEDS ORDERED: BRIDION 200MG/2ML IV ONE (07:07)
[2023-08-11] MEDS ORDERED: Zemuron 100 MG/10 ML ONE (07:07)
[2023-08-11] MEDS ORDERED: Zofran 4 MG/2 ML VIAL ONE (07:07)
[2023-08-11] MEDS ORDERED: TORAdol 30 mg Injection ONE (07:07)
[2023-08-11] MEDS ORDERED: SUBLIMAZE 100 MCG/2 ML ONE (07:07)
[2023-08-11] MEDS ORDERED: Xylocaine-Mpf 2% 5 Ml Vial ONE (07:07)
[2023-08-11] MEDS ORDERED: ROBINUL ONE (08:51)
[2023-08-11] MEDS ORDERED: Ephedrine Sulfate 50 MG/ML ONE (08:51)
[2023-08-11] MEDS ORDERED: Marcaine Mpf 0.5% Vial 30 Ml ONE (08:55)
[2023-08-11] MEDS ORDERED: Xylocaine 1% Vial 30 ML PF IJ ONE (08:56)
[2023-08-11] MEDS ORDERED: Lactated Ringers 1,000 ML IV ONE (08:56)
[2023-08-11 10:23] VITALS: O2SAT 94
[2023-08-11 10:28] VITALS: TEMP 97
[2023-08-11 10:57] VITALS: BP 161/84; PULSE 68
--- NOTE | 2023-08-14 11:24 | OP ---
SURGERY DATE/TIME: 08/11/2023 0835 PREOPERATIVE DIAGNOSES: 1) Infection of right ankle wound with dehiscence. 2) Right ankle pain. 3) Infection to level of Achilles tendon. POSTOPERATIVE DIAGNOSES: 1) Infection of right ankle wound with dehiscence. 2) Right ankle pain. 3) Infection to level of Achilles tendon. PROCEDURES: Incision and drainage with debridement of tendon to the level of the Achilles tendon as well as delayed primary closure of the right ankle wound. SURGEON: Pedro Kasper DPM. IS MANAGER: None. ANESTHESIA: General. HEMOSTASIS: Pressure dressing. ESTIMATED BLOOD LOSS: Approximately 5 cc. MATERIALS: 4-0 Monocryl, 3-0 Nylon, Bactisure. INJECTABLES: 10 cc of a 1:1 mixture of 1% lidocaine plain and 0.5% bupivacaine plain injected in a V-block type fashion to the posterior aspect of the right ankle in a V block-type fashion. INDICATION FOR PROCEDURE: Christine is a very pleasant 77-year-old female who presented to my service approximately one week ago where there was concern for a chronic nonhealing wound that started in April as a result of a door hitting her at her bank. She presented to the emergency department and this was treated as a laceration. Although the traumatic wound did go to the level of the tendon, from that standpoint the patient did well for a short period of time however did develop some symptoms of infection. As a result, she was placed on an antibiotic and did see some improvement. However two and a half months after the initial insult, the wound was not healed. She presented to my office with a chronic wound which was draining some purulence. At this time the decision was made due to the fact that the wound was to the level of tendon to proceed with a debridement of the tendon as well as proceed with closure of the wound if thought acceptable to do so. The patient understands all risks, benefits and complication of surgical intervention at this time including but not limited to infection, hematoma, seroma, possibility of delayed wound healing, nonwound healing and possibility of further surgical intervention at a later date. No guarantees were provided as to the outcome of surgery. Plenty of time was allowed for the patient to ask questions which were answered to her apparent satisfaction. It is at this time we have decided to proceed. DESCRIPTION OF PROCEDURE AND FINDINGS: The patient was brought into the OR, placed under general anesthesia on the cart and carefully flipped to a prone position on the surgical table. At this time a well-padded thigh tourniquet was applied to the patient's right thigh and the right leg was prepped in typical sterile fashion. At this time attention was directed to the wound at the posterior aspect of the ankle where debridement began taking place. The medial and lateral portions of the wound were open at this time which showed some exposed paratenon however no open tendon. From that standpoint, the small openings were enlarged utilizing a [place] and from where the majority of the pain was at the patient's lateral right heel, the site was compressed and a small amount of purulence was expressed from the site. From that standpoint, further opening of the incision was carried out. The paratenon was incised until the tendon was identified on both end and exploration of the wound as well as debridement of the wound took place utilizing a combination of rongeurs, curettes and a 15 blade excising some of the tendon that did look diseased. From this standpoint so little tendon was taken a repair was not performed. The Bactisure was then utilized to flush the surgical site and then cleansed with sterile saline. At this time, the paratenon was closed utilizing 4-0 Monocryl. The skin was then coapted utilizing 4-0 Monocryl in a subcutaneous simple interrupted-type fashion and the Nylon 3-0 was utilized to coapt the skin edges in an everted-type fashion utilizing a horizontal mattress. A dressing consisting of Betadine, Adaptic, 4x4, Kerlix and DESEAN were applied to the patient's right lower extremity. The patient was then reversed from anesthesia and returned to the postoperative anesthesia care unit with vital signs stable and vascular status intact. The patient handled the anesthesia as well as the procedure without significant complication. Postoperative orders as indicated in the patient's discharge chart.
== END 2023-08-11 10:50 | disposition home or self-care (01) ==
LOC: SDC 05:51
PROVIDERS: ATTEND Podiatrist Foot & Ankle Surgery
DX: T81.33XA Disruption of traumatic injury wound repair, initial encounter (principal); M65.171 Other infective (teno)synovitis, right ankle and foot; M25.571 Pain in right ankle and joints of right foot
CPT/HCPCS: 11043; 13160; 93005; A6260; J0690; J1100; J1885; J2001; J2405; J2704; J3010